=== PATIENT | male | born 1960 | race Caucasian/White ===

== ENCOUNTER 2016-11-24 07:08 | Inpatient (IN) | payer BC ==
[2016-11-20 17:26] LABS: BASOPHILS 0.9 %; BASOPHILS ABSOLUTE 0.06 10/3/uL (0.0-0.16); EOSINOPHILS 1.8 %; EOSINOPHILS ABSOLUTE 0.12 10/3/uL (0.0-0.53); HEMATOCRIT 43.8 % (40.0-51.0); HEMOGLOBIN 14.8 g/dL (13.6-17.8); IMMATURE GRANULOCYTES 0.6 %; IMMATURE GRANULOCYTES ABSOLUTE 0.04 10/3/uL (0.0-0.11); LYMPHOCYTES 25.8 %; LYMPHOCYTES ABSOLUTE 1.73 10/3/uL (0.67-4.30); MEAN CORPUSCULAR HEMOGLOB 30.8 pg (26.0-34.0); MEAN CORPUSCULAR VOLUME 91.1 fL (80-100); MEAN PLATELET VOLUME 9.6 fL (9.2-13.0); MONOCYTES 10.7 %; MONOCYTES ABSOLUTE 0.72 10/3/uL (0.21-1.20); NEUTROPHILS 60.2 %; NEUTROPHILS ABSOLUTE 4.03 10/3/uL (2.02-8.40); PLATELET COUNT 285 10/3/uL (150-400); RBC DISTRIBUTION WIDTH 12.6 % (12.0-16.0); RED CELL COUNT 4.81 10/6/uL (4.7-6.1); WHITE BLOOD CELLS 6.7 10/3/uL (4.5-10.5)
[2016-11-20 17:27] LABS: MANUAL DIFF NO %; MEAN CORPUS HGB CONC 33.8 g/dL (32.0-36.0)
[2016-11-20 17:44] LABS: A/G RATIO 1.3 (0.7-1.9); ALKALINE PHOSPHATASE 70 U/L (45-117); BUN (BLOOD UREA NITROGEN) 25 MG/DL (6-23); CALCIUM, SERUM 9.5 MG/DL (8.5-10.4); CHLORIDE, SERUM 107 MMOL/L (96-112); CO2 (CARBON DIOXIDE) 29 MMOL/L (24-34); CREATININE 1.27 MG/DL (0.70-1.30); GFR AFRICAN AMERICAN 74 ML/MIN (>=60); GFR NON AFRICAN AMERICAN 64 ML/MIN (>=60); GLOBULIN 3.2 G/DL (2.5-4.1); GLUCOSE, SERUM 84 MG/DL (60-99); POTASSIUM, SERUM 4.3 MMOL/L (3.5-5.3); SGOT(AST) 25 U/L (5-40); SGPT(ALT) 37 U/L (5-65); SODIUM, SERUM 143 MMOL/L (135-148); TOTAL BILIRUBIN 0.6 MG/DL (0-1.2); TOTAL PROTEIN 7.2 G/DL (6.0-8.5)
[2016-11-20 17:47] LABS: INTERNATIONAL NORMAL RATI 1.1 UNITS (-); PROTIME (NOT ORD) 14.2 SEC (12.0-14.5)
[2016-11-20 18:14] LABS: ASCORBIC ACID (UR NOT ORDER) 20 (NEG); BILIRUBIN, URINE NEGATIVE (NEG); KETONE, URINE NEGATIVE (NEG); LEUKOCYTE ESTERASE(NOT OR NEG (NEG); WBC (NOT ORDERED) (RFLEX) < 1 (0-5)
--- NOTE | ~2016-11-24 | CN ---
Consultation Report [place] [id number] [facility] [place]. [address] NAME: CHAPO DELUCA : 64 STATUS : ADM IN PAT#: [id number] AGE: 56 ADM/REG DATE : 11/24/16 MR#: [id number] REPORT SERV DATE: 11/24/16 DICTATED BY: EMILE CANO DATE: 11/24/16 REPORT STATUS : Draft TRANSCRIBED BY: MODL DATE: 11/24/16 CONSULTATION DATE OF CONSULTATION: 11/24/2016 REASON FOR CONSULTATION: Mr. Chapo Deluca is a 56-year-old male, who is status post minimally invasive maze procedure for a persistent atrial fibrillation. CVD PHYSICIAN: Chris King M.D. CREDIT RISK ANALYTICS MANAGER: Paco Alejandro M.D. SURGEON: Mukund De Oliveira M.D.. HISTORY OF PRESENT ILLNESS: Mr. Chapo Deluca has a long history of atrial fibrillation dating back to 2016 initially mentioned at [facility]. He has undergone cardioversion, but has reverted back to atrial fibrillation. He was then seen back and it was decided proceed with surgical Berman-Maze IV procedure. Cardiac catheterization revealed no evidence of coronary artery disease. REVIEW OF SYSTEMS: Not obtainable. Patient is intubated and sedated. PAST MEDICAL HISTORY: 1. Borderline left ventricular function with elevated LVEDP on previous catheterization. 2. Persistent atrial fibrillation, now status post maze procedure in a paced rhythm. SOCIAL HISTORY: He does not drink or smoke. His is in attendance. FAMILY HISTORY: Noncontributory. PHYSICAL EXAMINATION: GENERAL: He is currently sedated and intubated. LUNGS: Bilateral breath sounds are heard. HEART: Paced rhythm is noted. EXTREMITIES: Warm. LABORATORY EVALUATION: Telemetry shows paced rhythm. ASSESSMENT: At this time, we will follow with you. We will follow underlying rhythm as this progresses. Consultation Report [place] [id number] [facility]. [address] NAME: CHAPO DELUCA : 64 STATUS : ADM IN PAT#: [id number] AGE: 56 ADM/REG DATE : 11/24/16 MR#: [id number] REPORT SERV DATE: 11/24/16 DICTATED BY: EMILE CANO DATE: 11/24/16 REPORT STATUS : Draft TRANSCRIBED BY: MODL DATE: 11/24/16 GG/MODL Emile Cano M.D. / [id number] CC: Mina Matamoros M.D.
--- NOTE | ~2016-11-24 | OP ---
Record Of [facility] [address] [place]. [address] NAME: CHAPO FELTON : 64 STATUS : ADM IN PAT#: [id number] AGE: 56 ADM/REG DATE : 11/24/16 MR#: [id number] REPORT SERV DATE: 11/25/16 DICTATED BY: EMANUEL DE OLIVEIRA DATE: 11/25/16 REPORT STATUS : Draft TRANSCRIBED BY: MODL DATE: 11/25/16 DATE OF PROCEDURE: 11/24/2016 PREOPERATIVE DIAGNOSES: 1. Persistent chronic atrial fibrillation. 2. Hypertension. 3. Obesity. POSTOPERATIVE DIAGNOSES: 1. Persistent chronic atrial fibrillation. 2. Hypertension. 3. Obesity. PROCEDURE PERFORMED: 1. Minimally invasive Berman-Maze IV procedure on cardiopulmonary bypass using radiofrequency ablation and cryoablation. 2. Mini right thoracotomy incision. 3. Right groin cannulation for cardiopulmonary bypass, open. 4. Open repair of right femoral arteriotomy site. 5. Transesophageal echocardiography. 6. Atra clip ligation of left atrial appendage. CLAIM INVESTIGATOR: Saul Kapoor. ANESTHESIA: General with Dr. Salmeron. GRAIN OILSEED OR PASTURE FARM WORKER: Chris King MD EP GRAIN OILSEED OR PASTURE FARM WORKER: Enoch Alejandro MD. 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 He has had previous cardioversion that was unsuccessful. He was referred by Dr. King to Dr. Alejandro for atrial fibrillation treatment, and because of this chronicity, we were asked to see the patient for evaluation for possible Berman-Maze IV procedure. Ventricular function has been preserved. The patient notes chronic fatigue and some dyspnea with exertion. There is no history of syncope or TIA-like symptoms. He denies anginal-type chest pain. Echocardiography demonstrated no surgically significant valvular pathology and an ejection fraction of 50%. We saw the patient in our office and discussed a possible Berman-Maze IV procedure with him and his significant other. The patient underwent a cardiac catheterization on 10/16 of this year. 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 Possible Berman-Maze IV procedure was considered and discussed with the patient who wished to proceed. Record Of [facility] [address] [place]. [address] NAME: CHAPO FELTON : 64 STATUS : ADM IN PAT#: [id number] AGE: 56 ADM/REG DATE : 11/24/16 MR#: [id number] REPORT SERV DATE: 11/25/16 DICTATED BY: EMANUEL DE OLIVEIRA DATE: 11/25/16 REPORT STATUS : Draft TRANSCRIBED BY: DARIN DATE: 11/25/16 FINDINGS AT OPERATION: 1. Cross-clamp time 58 minutes. Total pump time 138 minutes. 2. Berman-Maze IV procedure was performed on cardiopulmonary bypass using the AtriCure radiofrequency ablation system and cryoablation systems. See the Berman-Maze IV lesion set checklist for the specific lesions created. 3. We used a 45 mm Atra clip placed at the base left atrial appendage with echocardiography confirmation of ablation. 4. We performed open repair of the right femoral arteriotomy site after decannulation. 5. Right groin cannulation was performed for femoral artery and vein cannulation for bypass. 6. PENG at the end of the procedure demonstrated good ventricular function with no significant valvular pathology. There was no residual lumen seen on the left atrial appendage after clip application. No significant MR. PATHOLOGIC SPECIMENS: None. DESCRIPTION OF PROCEDURE: The patient was brought to the operating suite, where general anesthesia was induced and airway secured with a dual lumen endotracheal tube. Lines secured by Anesthesia. Keating catheter was placed. PENG probe was placed by Dr. Salmeron and examination carried out as discussed above. Aortic insufficiency was mild. There was no clot noted in the left atrial appendage and there was no significant mitral insufficiency. A mini right anterolateral thoracotomy was made for approximately 6-8 cm at the inframammary crease extending across the anterior axillary line. This was carried through subcutaneous tissue and chest wall musculature. The 4th intercostal space was identified and this was opened using cautery. A large Protractor soft tissue retractor was placed through the incision. The lung was deflated by Anesthesia and there were no adhesions noted. A small retractor was placed. We then noted that the diaphragm was high on this side and tacking sutures were placed in the diaphragm and retraction performed to allow us good access to the pericardial space. There was large amount of pericardial fat noted, and these areas of fat were suspended using tacking sutures of pledgeted Ti-Cron brought through the anterior chest wall. The right groin was then approached for cannulation. An oblique incision was made directly over the femoral artery and vein above the inguinal crease. This carried through subcutaneous tissue. The femoral artery and vein were identified and these were dissected. Pursestring sutures of 6-0 Prolene were placed in both structures. Lines were passed on the field for cardiopulmonary bypass and cleared of air. Heparin was administered by Anesthesia. Venous cannulation was performed using modified Seldinger technique, and this dual stage percutaneous venous cannula was advanced into the proximal SVC under PENG guidance. The right femoral artery cannulation was performed using a modified Seldinger technique, and a 21-Citizen Of [place] arterial cannula placed in the right femoral artery and secured. Both lines were connected to the cardiopulmonary bypass pump tubing and cleared of air. When all was in readiness, the patient was placed on cardiopulmonary bypass. Then opening Record Of [facility] [address] [place]. [address] NAME: CHAPO FELTON : 64 STATUS : ADM IN PAT#: [id number] AGE: 56 ADM/REG DATE : 11/24/16 MR#: [id number] REPORT SERV DATE: 11/25/16 DICTATED BY: EMANUEL DE OLIVEIRA DATE: 11/25/16 REPORT STATUS : Draft TRANSCRIBED BY: DARIN DATE: 11/25/16 in the pericardium was made longitudinally about 2-3 cm anterior to the phrenic nerve and following it from the superior vena cava down to the diaphragm. Tacking sutures were placed on the pericardium both anteriorly and laterally. This allowed us good exposure of the right atrium and superior vena cava. Unfortunately, we did not have good decompression of the right atrium and various maneuvers were considered to try to improve this including manipulation of the venous cannula in the right femoral vein. At the end, I felt that an additional cannula should be placed directly into the right atrium and this planned after the right-sided Maze lesions were completed. We then began the right-sided Maze lesion set. Right atrial appendage lesion was performed along with lateral atrial wall and transverse atrial wall. Superior and inferior vena cava lesions were performed, all with the RFA bipolar clamp. Then to complete the right-sided lesion set, the cryoprobe was advanced through a pursestring suture in the right atrial appendage. This was placed across the tricuspid valve at the 2 o'clock position and this cryo lesion performed. Once this was completed, the pursestring suture was tied. One of the other access sites on the right atrium for performance of the Maze was utilized as a pursestring suture and a 28-Citizen [place] malleable venous cannula advanced into the right atrium and secured. This was utilized for additional decompression of the heart and worked very nicely. Then, we examined and attempted to locate the left atrial appendage through the transverse sinus. The left atrial appendage was identified. A 45 mm Atra clip device was selected, it was placed through the transverse sinus and the left atrial appendage, teased into the clip. The clip was then closed and the heart was allowed to fill and eject with the heart full of the left atrial appendage appeared obliterated on the PENG. The Atra clip was then deployed and the delivery system was brought out through the chest. The interatrial groove of [place] was then dissected and preparations made for the left- sided portion of the lesion set. For this left-sided lesion set, cross-clamping of the aorta was to be carried out. An antegrade cardioplegia long needle was placed in the aortic root and secured with a pursestring suture. The aorta was then crossclamped and initial and only dose of cold crystalloid cardioplegia solution (long term) was delivered through this antegrade needle. Good arrest was obtained. Following this dose of cardioplegia, we continued with the Maze procedure. The left atriotomy was made. Then, using the AtriCure cryoprobe, pulmonary vein isolation was performed along with superior and inferior left atrial lesion set. A lesion going from the left pulmonary vein isolation to the left atrial appendage was performed using the cryoprobe. Then, a coronary sinus lesion was performed on the epicardial surface using the cryoprobe. Finally, going down to the mitral annulus, the cryoprobe was used to perform this lesion. Once the left-sided lesion set was completed. Warming was begun. The left atriotomy was then closed in a two-layer fashion with running pledgeted suture of 4 0 Prolene. An LV vent was placed through the left atriotomy into the left ventricle prior to closure and this was kept in place for de-airing. The patient was then placed in Trendelenburg and the left ventricle and ascending aorta de- aired. Flow was reduced on the pump and the aortic cross-clamp was removed. Record Of Operation [facility] [address] [place]. [address] NAME: CHAPO FELTON : 64 STATUS : ADM IN PAT#: [id number] AGE: 56 ADM/REG DATE : 11/24/16 MR#: [id number] REPORT SERV DATE: 11/25/16 DICTATED BY: EMANUEL DE OLIVEIRA DATE: 11/25/16 REPORT STATUS : Draft TRANSCRIBED BY: DARIN DATE: 11/25/16 The patient resumed a slow sinus rhythm. Ventricular and atrial pacing wires were placed and the heart was paced in an atrial fashion at a rate of 80. Ventilations were begun in both lungs. When the heart demonstrated good contractility, it was allowed to fill and eject. De-airing was monitored with PENG. When de-airing was completed, the LV vent was removed and the sutures were tied. The ascending aortic root vent was likewise removed and this pledgeted mattress suture of Prolene was tied with good hemostasis. The patient was then weaned from cardiopulmonary bypass with minimal inotropic support. The venous cannula was removed from the right femoral vein and this pursestring suture tied and was hemostatic. PENG examination demonstrated good ventricular function. No left atrial appendage was identified on PENG and there was no significant mitral insufficiency. Protamine was then administered by Anesthesia and following a period of hemodynamic stability, the arterial cannula from the right femoral artery was removed. The proximal and distal control of the right femoral artery was obtained using angled DeBakey clamps. The right femoral arteriotomy site was freshened and then closed with interrupted horizontal mattress sutures of 6-0 Prolene. Following closure of the vessel was de-aired by releasing the most distal clamp and then the proximal clamp. There was good pulsatile flow in the femoral vessel after repair. The patient continued do well and chest and groin were irrigated copiously with saline. Then pacing wires were brought out through the chest and secured to the skin. A chest tube was placed through one of the port access sites made earlier during the procedure and this was secured to the skin. Then, the intercostal space was reapproximated with figure-of- eight sutures of #2 Vicryl. The muscular layer closed with #1 Stratafix. The subcutaneous tissue was closed and skin closed in subcuticular fashion. The patient tolerated the procedure well with no complications. Sponge and needle counts were correct. DISPOSITION: The patient was left intubated, sedated, and transported to the intensive care unit in stable condition. JZ/AVIVAL Emanuel De Oliveira M.D. / [id number] CC: Mina Matamoros M.D. William Warren, M.D. Gregory Keith Bruce, M.D.
--- NOTE | ~2016-11-24 | OP ---
Record Of Operation [facility] [address] [place]. [address] NAME: CHAPO FELTON : 64 STATUS : DIS IN PAT#: [id number] AGE: 56 ADM/REG DATE : 11/24/16 MR#: [id number] REPORT SERV DATE: 11/30/16 DICTATED BY: REUBEN GARCIAS DATE: 11/30/16 REPORT STATUS : Draft TRANSCRIBED BY: MODL DATE: 11/30/16 DATE OF PROCEDURE: 11/30/2016 PROCEDURE TYPE: Elective PENG cardioversion. INDICATION: Atrial fibrillation. DESCRIPTION OF PROCEDURE: All questions were answered and informed consent was obtained. Upon successful sedation per anesthesia, the patient was intubated with the transesophageal probe without complication. Salient echocardiographic windows were obtained, with particular attention to the left atrial appendage. Findings are detailed below: Upon clearance of the appendage, the patient was shocked with 200 joules synchronized x1. The patient successfully converted from atrial fibrillation to sinus rhythm at 60 to 70 beats per minute. There were no complications from the procedure. ECHOCARDIOGRAPHIC FINDINGS: 1. Normal left ventricular systolic function with an estimated ejection fraction of 55%. 2. Normal right ventricular size and systolic function. 3. Morphologically normal valves. 4. Color Doppler demonstrates mild mitral and tricuspid regurgitation. 5. Small left atrial appendage with cord noted. No thrombus was seen in the left atrial appendage at the time of the study. Doppler velocities=(60 cm/second) (peak velocity). VR/DARIN Reuben Garcias MD / [id number] CC: Mina Matamoros M.D.
--- NOTE | ~2016-11-24 | HP ---
History And Physical [place] [address] [place]. [address] NAME: CHAPO DELUCA : 64 STATUS : DIS IN PAT#: [id number] AGE: 56 ADM/REG DATE : 11/24/16 MR#: [id number] REPORT SERV DATE: 01/19/17 DICTATED BY: EMANUEL DE OLIVEIRA DATE: 01/19/17 REPORT STATUS : Draft TRANSCRIBED BY: MODRony DATE: 01/19/17 DATE OF ADMISSION: 11/24/2016 CHIEF COMPLAINT: Chronic fatigue and dyspnea on exertion. 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 Enoch Alejandro. Because of his chronic persistent atrial fibrillation, the patient was asked to be seen in the office for a possible Berman IV maze procedure. He did have a heart catheterization in 2013 that revealed an ejection fraction of 50%. The patient states that he does have chronic fatigue and dyspnea on exertion. He also states that he has some nausea in the morning with taking some of his medications. He denies syncopal episodes, anginal-type chest pain or discomfort, orthopnea, or significant edema. He also denies a history of stroke or TIA like symptoms. His most recent echo showed an ejection fraction of 50% with some trivial valve disease and mild systolic dysfunction of the left ventricle. PAST MEDICAL HISTORY: Significant for chronic atrial fibrillation and chronic systolic heart failure. FAMILY HISTORY: Significant for hypertension and cardiac arrhythmias in his father, mother, and sister. SOCIAL HISTORY: The patient states that he was never a smoker. He does consume one glass of wine once monthly. He denies illicit drug use and does use caffeine on occasion. ALLERGIES: HE DENIES A HISTORY OF ALLERGIES. MEDICATION LIST: Includes: 1. Carvedilol 12.5 mg b.i.d. 2. Eliquis 5 mg twice daily. 3. Furosemide 40 mg daily. 4. Potassium chloride 10 mEq once daily. 5. Lisinopril 20 mg once daily. REVIEW OF SYSTEMS: CONSTITUTIONAL: Negative for weight gain, weight loss, or fever. EYES: Negative for visual changes. ENT: Negative for hearing loss. RESPIRATORY: Negative for hemoptysis. He does report snoring and dyspnea on exertion. CARDIOLOGY: Negative for chest pain, diaphoresis, orthopnea, syncope, or paroxysmal nocturnal dyspnea. He does report palpitations. VASCULAR: Negative for claudication or lower extremity edema. GI: Negative for nausea or bleeding and positive for gastrointestinal reflux. : Negative for hematuria and positive for nocturia. ENDOCRINE: Negative for goiter or tremors. History And Physical [address] [address] NAME: CHAPO DELUCA : 64 STATUS : DIS IN PAT#: [id number] AGE: 56 ADM/REG DATE : 11/24/16 MR#: [id number] REPORT SERV DATE: 01/19/17 DICTATED BY: EMANUEL DE OLIVEIRA DATE: 01/19/17 REPORT STATUS : Draft TRANSCRIBED BY: DARIN DATE: 01/19/17 NEURO: Negative for dizziness, memory loss, or seizures. PSYCHIATRIC: Negative for depression or hallucinations. DERMATOLOGY: Negative for rash or skin sores. MUSCULOSKELETAL: Negative for myalgias and positive for joint pain. HEMATOLOGY: Negative for acute anemia or thrombocytopenia. PHYSICAL EXAMINATION: VITAL SIGNS: Include a heart rate of 62, blood pressure of 105/65, the patient is 69 inches and weighs 218 pounds, respiratory rate is 18, and he has a BMI of 32.1. CONSTITUTIONAL: Negative for acute distress. He is well nourished and well developed. EYES: Conjunctivae are clear as well as the sclerae bilaterally. His pupils are equal, round, and reactive to light. NOSE, MOUTH, AND THROAT: He has moist oral mucosa without any evidence of cyanosis or pallor. NECK: Demonstrates no evidence of masses or limited range of motion or jugular vein distention. RESPIRATORY: His breath sounds are clear throughout and nonlabored. CARDIAC: He does have S1 and S2 heart sounds without any evidence of murmurs. He does have an irregular rhythm that is noted. VASCULAR: Negative for carotid bruits. He has normal bilateral pedal pulses. ABDOMEN: Soft and nontender without any evidence of hepatomegaly or splenomegaly. He has active bowel sounds. SKIN: Warm and dry without any evidence of venous stasis ulcers or rashes. MUSCULOSKELETAL: His gait is normal, and he is able to exercise. EXTREMITIES: Without clubbing, cyanosis, or lower extremity edema. NEUROLOGICAL: He is awake, alert, and oriented x3 and has appropriate mood and affect. IMPRESSION: 1. Chronic atrial fibrillation. 2. Unspecified cardiomyopathy. PLAN: The patient had discussion along with his significant other and Dr. De Oliveira for a possible Berman maze IV procedure for chronic persistent atrial fibrillation. I believe this would give him the highest likelihood of success. He does not require open heart surgery or cardiopulmonary bypass. He would be a reasonable candidate for the right mini-thoracotomy surgery and those were discussed with the patient and the family today. They understand the risks associated with the operation that are significant for bleeding, infection, pneumonia, blood transfusion, kidney or liver damage, arrhythmia, need for pacemaker, heart attack, stroke, mediastinitis, DVT with pulmonary emboli, and among others. The patient verbalizes understanding of these risks and is willing to proceed forward with surgery. He also understands the success rate of a Berman IV maze procedure for chronic atrial fibrillation to be between 70% and 80%. At this time, the plan will be for the patient to have a cardiac catheterization, and he will be scheduled for a right thoracotomy with Berman IV maze procedure and a PENG. This procedure has been scheduled for 11/24/2016. DICTATED BY: Ximena Gomez NP History And Physical [address] [address] NAME: CHAPO DELUCA : 64 STATUS : DIS IN PAT#: [id number] AGE: 56 ADM/REG DATE : 11/24/16 MR#: [id number] REPORT SERV DATE: 01/19/17 DICTATED BY: EMANUEL DE OLIVEIRA DATE: 01/19/17 REPORT STATUS : Draft TRANSCRIBED BY: DARIN DATE: 01/19/17 KEL/DARIN Emanuel De Oliveira M.D. / [id number] CC: Mina Matamoros M.D.
[~2016-11-24 07:08] MED LIST: COREG12 PO; ELIQUIS 5 MG TAB5 MG PO; KLOR-CON M1010 MEQ PO; L40 PO; LAN25 PO; ZESTRIL20 MG PO
[2016-11-24 15:27] LABS: BE (BASE EXCESS) -5.9 MEQ/L (0 +/- 2.5); CARBOXYHEMOGLOBIN 0.3 % (0-3); HCO3 (ACTUAL BICARBONATE) 19.4 MEQ/L (23-27); HEMOBLOGIN CONTENT 14.1 G/DL (14-18); INSTRUMENT SERIAL # 11843; METHEMOGLOBIN 0.6 % (0-3); MODE SIMV; O2 CONTENT 20.2 VOL% (18-24); OPERATOR ID 18642; PCO2 (CO2 TENSION) 37 MMHG (35-45); PO2 (O2 TENSION) 296 MMHG (79-93); SAMPLE Arterial; TIDAL VOLUME 700 ML; pH 7.33 (7.37-7.43)
[2016-11-24 15:36] LABS: HEMOGLOBIN 13.2 g/dL (13.6-17.8)
[2016-11-24 15:39] LABS: HEMATOCRIT 38.7 % (40.0-51.0); PLATELET COUNT 153 10/3/uL (150-400)
[2016-11-24 15:45] LABS: CHLORIDE, SERUM 110 MMOL/L (96-112); CREATININE 1.09 MG/DL (0.70-1.30); GFR AFRICAN AMERICAN 89 ML/MIN (>=60); GFR NON AFRICAN AMERICAN 77 ML/MIN (>=60); INTERNATIONAL NORMAL RATI 1.6 UNITS (-); PARTIAL THROMBO TIME 30.2 SEC (22.5-37.2); POTASSIUM, SERUM 4.6 MMOL/L (3.5-5.3); SODIUM, SERUM 137 MMOL/L (135-148)
[2016-11-24 15:48] LABS: BUN (BLOOD UREA NITROGEN) 17 MG/DL (6-23); CALCIUM, SERUM 8.2 MG/DL (8.5-10.4); CO2 (CARBON DIOXIDE) 22 MMOL/L (24-34); GLUCOSE, SERUM 140 MG/DL (60-99); PROTIME (NOT ORD) 18.5 SEC (12.0-14.5)
[2016-11-24 17:29] LABS: BASOPHILS 0.1 %; BASOPHILS ABSOLUTE 0.02 10/3/uL (0.0-0.16); EOSINOPHILS 0.1 %; EOSINOPHILS ABSOLUTE 0.02 10/3/uL (0.0-0.53); IMMATURE GRANULOCYTES 0.5 %; IMMATURE GRANULOCYTES ABSOLUTE 0.07 10/3/uL (0.0-0.11); LYMPHOCYTES 5.2 %; MANUAL DIFF NO %; MEAN CORPUS HGB CONC 34.2 g/dL (32.0-36.0); MEAN CORPUSCULAR HEMOGLOB 31.4 pg (26.0-34.0); MONOCYTES 2.2 %; NEUTROPHILS 91.9 %; NEUTROPHILS ABSOLUTE 12.25 10/3/uL (2.02-8.40); RBC DISTRIBUTION WIDTH 12.8 % (12.0-16.0); RED CELL COUNT 4.23 10/6/uL (4.7-6.1); WHITE BLOOD CELLS 13.4 10/3/uL (4.5-10.5)
[2016-11-24 21:59] LABS: HEMATOCRIT 39.4 % (40.0-51.0); HEMOGLOBIN 13.2 g/dL (13.6-17.8)
[2016-11-24 22:04] LABS: POTASSIUM, SERUM 4.9 MMOL/L (3.5-5.3)
[2016-11-25 03:22] LABS: BASOPHILS 0 %; EOSINOPHILS 0 %; HEMATOCRIT 37.6 % (40.0-51.0); HEMOGLOBIN 13.1 g/dL (13.6-17.8); IMMATURE GRANULOCYTES 0.3 %; IMMATURE GRANULOCYTES ABSOLUTE 0.03 10/3/uL (0.0-0.11); LYMPHOCYTES 5.9 %; LYMPHOCYTES ABSOLUTE 0.67 10/3/uL (0.67-4.30); MEAN CORPUS HGB CONC 34.8 g/dL (32.0-36.0); MEAN CORPUSCULAR HEMOGLOB 31.9 pg (26.0-34.0); MEAN CORPUSCULAR VOLUME 91.5 fL (80-100); MEAN PLATELET VOLUME 9.5 fL (9.2-13.0); MONOCYTES 7.8 %; MONOCYTES ABSOLUTE 0.88 10/3/uL (0.21-1.20); NEUTROPHILS ABSOLUTE 9.72 10/3/uL (2.02-8.40); PLATELET COUNT 187 10/3/uL (150-400); RBC DISTRIBUTION WIDTH 12.6 % (12.0-16.0); RED CELL COUNT 4.11 10/6/uL (4.7-6.1); WHITE BLOOD CELLS 11.3 10/3/uL (4.5-10.5)
[2016-11-25 03:23] LABS: MANUAL DIFF NO %
[2016-11-25 03:35] LABS: CALCIUM, SERUM 8.8 MG/DL (8.5-10.4); CHLORIDE, SERUM 109 MMOL/L (96-112); CO2 (CARBON DIOXIDE) 21 MMOL/L (24-34); CREATININE 0.95 MG/DL (0.70-1.30); GFR AFRICAN AMERICAN 105 ML/MIN (>=60); GFR NON AFRICAN AMERICAN 90 ML/MIN (>=60); GLUCOSE, SERUM 101 MG/DL (60-99); POTASSIUM, SERUM 4.7 MMOL/L (3.5-5.3); SODIUM, SERUM 138 MMOL/L (135-148)
[2016-11-25 03:37] LABS: BUN (BLOOD UREA NITROGEN) 23 MG/DL (6-23)
[2016-11-25 18:42] LABS: HEMATOCRIT 39.4 % (40.0-51.0); HEMOGLOBIN 13.2 g/dL (13.6-17.8)
[2016-11-26 06:17] LABS: BASOPHILS 0.1 %; BASOPHILS ABSOLUTE 0.01 10/3/uL (0.0-0.16); EOSINOPHILS 0 %; HEMATOCRIT 35.8 % (40.0-51.0); HEMOGLOBIN 12.2 g/dL (13.6-17.8); IMMATURE GRANULOCYTES 0.5 %; IMMATURE GRANULOCYTES ABSOLUTE 0.07 10/3/uL (0.0-0.11); LYMPHOCYTES 8.4 %; LYMPHOCYTES ABSOLUTE 1.13 10/3/uL (0.67-4.30); MEAN CORPUS HGB CONC 34.1 g/dL (32.0-36.0); MEAN CORPUSCULAR HEMOGLOB 31.3 pg (26.0-34.0); MEAN CORPUSCULAR VOLUME 91.8 fL (80-100); MEAN PLATELET VOLUME 9.5 fL (9.2-13.0); MONOCYTES 11.6 %; MONOCYTES ABSOLUTE 1.56 10/3/uL (0.21-1.20); NEUTROPHILS 79.4 %; PLATELET COUNT 170 10/3/uL (150-400); WHITE BLOOD CELLS 13.5 10/3/uL (4.5-10.5)
[2016-11-26 06:18] LABS: MANUAL DIFF NO %
[2016-11-26 06:25] LABS: BUN (BLOOD UREA NITROGEN) 21 MG/DL (6-23); CALCIUM, SERUM 8.4 MG/DL (8.5-10.4); CHLORIDE, SERUM 102 MMOL/L (96-112); CO2 (CARBON DIOXIDE) 23 MMOL/L (24-34); CREATININE 1.04 MG/DL (0.70-1.30); GFR AFRICAN AMERICAN 94 ML/MIN (>=60); GFR NON AFRICAN AMERICAN 81 ML/MIN (>=60); POTASSIUM, SERUM 4.7 MMOL/L (3.5-5.3); SODIUM, SERUM 132 MMOL/L (135-148)
[2016-11-26 06:26] LABS: GLUCOSE, SERUM 130 MG/DL (60-99)
[2016-11-27 06:18] LABS: BASOPHILS 0.2 %; BASOPHILS ABSOLUTE 0.02 10/3/uL (0.0-0.16); EOSINOPHILS 0.4 %; EOSINOPHILS ABSOLUTE 0.04 10/3/uL (0.0-0.53); HEMATOCRIT 35.4 % (40.0-51.0); HEMOGLOBIN 11.8 g/dL (13.6-17.8); IMMATURE GRANULOCYTES 0.8 %; IMMATURE GRANULOCYTES ABSOLUTE 0.09 10/3/uL (0.0-0.11); LYMPHOCYTES ABSOLUTE 1.09 10/3/uL (0.67-4.30); MANUAL DIFF NO %; MEAN CORPUS HGB CONC 33.3 g/dL (32.0-36.0); MEAN CORPUSCULAR HEMOGLOB 30.6 pg (26.0-34.0); MEAN CORPUSCULAR VOLUME 91.9 fL (80-100); MEAN PLATELET VOLUME 9.8 fL (9.2-13.0); MONOCYTES 13.8 %; MONOCYTES ABSOLUTE 1.51 10/3/uL (0.21-1.20); NEUTROPHILS 74.8 %; NEUTROPHILS ABSOLUTE 8.19 10/3/uL (2.02-8.40); PLATELET COUNT 159 10/3/uL (150-400); RBC DISTRIBUTION WIDTH 12.9 % (12.0-16.0); RED CELL COUNT 3.85 10/6/uL (4.7-6.1); WHITE BLOOD CELLS 10.9 10/3/uL (4.5-10.5)
[2016-11-27 06:20] LABS: INTERNATIONAL NORMAL RATI 1.2 UNITS (-); PROTIME (NOT ORD) 15.2 SEC (12.0-14.5)
[2016-11-27 06:26] LABS: CALCIUM, SERUM 8.3 MG/DL (8.5-10.4); CHLORIDE, SERUM 102 MMOL/L (96-112); CO2 (CARBON DIOXIDE) 26 MMOL/L (24-34); CREATININE 0.92 MG/DL (0.70-1.30); GFR AFRICAN AMERICAN 109 ML/MIN (>=60); GFR NON AFRICAN AMERICAN 94 ML/MIN (>=60); POTASSIUM, SERUM 4.4 MMOL/L (3.5-5.3); SODIUM, SERUM 134 MMOL/L (135-148)
[2016-11-27 06:27] LABS: BUN (BLOOD UREA NITROGEN) 15 MG/DL (6-23); GLUCOSE, SERUM 99 MG/DL (60-99)
[2016-11-28 04:49] LABS: HEMATOCRIT 33.4 % (40.0-51.0); HEMOGLOBIN 11.3 g/dL (13.6-17.8); MEAN CORPUS HGB CONC 33.8 g/dL (32.0-36.0); MEAN CORPUSCULAR HEMOGLOB 31.4 pg (26.0-34.0); MEAN CORPUSCULAR VOLUME 92.8 fL (80-100); MEAN PLATELET VOLUME 9.7 fL (9.2-13.0); PLATELET COUNT 184 10/3/uL (150-400); RBC DISTRIBUTION WIDTH 12.9 % (12.0-16.0); WHITE BLOOD CELLS 9.1 10/3/uL (4.5-10.5)
[2016-11-28 04:52] LABS: INTERNATIONAL NORMAL RATI 1.2 UNITS (-)
[2016-11-28 05:01] LABS: BUN (BLOOD UREA NITROGEN) 16 MG/DL (6-23); CALCIUM, SERUM 8.3 MG/DL (8.5-10.4); CHLORIDE, SERUM 103 MMOL/L (96-112); CO2 (CARBON DIOXIDE) 27 MMOL/L (24-34); CREATININE 0.88 MG/DL (0.70-1.30); GFR AFRICAN AMERICAN 113 ML/MIN (>=60); GFR NON AFRICAN AMERICAN 97 ML/MIN (>=60); GLUCOSE, SERUM 83 MG/DL (60-99); POTASSIUM, SERUM 4.5 MMOL/L (3.5-5.3); SODIUM, SERUM 136 MMOL/L (135-148)
[2016-11-28 05:06] LABS: MANUAL DIFF YES %
[2016-11-28 05:23] LABS: BAND NEUTROPHILS 6 %; EOSINOPHILS 1 %; EOSINOPHILS ABSOLUTE (CALC) 0.09 10/3/uL (0.0-0.53); LYMPHOCYTES 14 %; LYMPHOCYTES ABSOLUTE (CALC) 1.27 10/3/uL (0.67-4.30); MONOCYTES 7 %; MONOCYTES ABSOLUTE (CALC) 0.64 10/3/uL (0.21-1.20); PLATELET ESTIMATE ADQ (ADEQUATE); RBC MORPHOLOGY NORM (NORMAL); SEGMENTED NEUTROPHIL (0) 72 %; TOTAL NUCLEATED CELLS 100
[2016-11-29 05:19] LABS: BASOPHILS 0.2 %; BASOPHILS ABSOLUTE 0.02 10/3/uL (0.0-0.16); EOSINOPHILS 3.6 %; HEMATOCRIT 33.4 % (40.0-51.0); IMMATURE GRANULOCYTES 1.3 %; IMMATURE GRANULOCYTES ABSOLUTE 0.11 10/3/uL (0.0-0.11); LYMPHOCYTES 17.1 %; LYMPHOCYTES ABSOLUTE 1.42 10/3/uL (0.67-4.30); MEAN CORPUS HGB CONC 32.9 g/dL (32.0-36.0); MEAN CORPUSCULAR HEMOGLOB 30.6 pg (26.0-34.0); MEAN CORPUSCULAR VOLUME 92.8 fL (80-100); MEAN PLATELET VOLUME 9.4 fL (9.2-13.0); MONOCYTES 12.7 %; MONOCYTES ABSOLUTE 1.05 10/3/uL (0.21-1.20); NEUTROPHILS 65.1 %; NEUTROPHILS ABSOLUTE 5.39 10/3/uL (2.02-8.40); PLATELET COUNT 233 10/3/uL (150-400); RBC DISTRIBUTION WIDTH 12.7 % (12.0-16.0); WHITE BLOOD CELLS 8.3 10/3/uL (4.5-10.5)
[2016-11-29 05:22] LABS: MANUAL DIFF NO %
[2016-11-29 05:27] LABS: INTERNATIONAL NORMAL RATI 1.2 UNITS (-); PROTIME (NOT ORD) 15.1 SEC (12.0-14.5)
[2016-11-29 05:35] LABS: BUN (BLOOD UREA NITROGEN) 16 MG/DL (6-23); CALCIUM, SERUM 8.8 MG/DL (8.5-10.4); CHLORIDE, SERUM 102 MMOL/L (96-112); CO2 (CARBON DIOXIDE) 30 MMOL/L (24-34); CREATININE 1.01 MG/DL (0.70-1.30); GFR AFRICAN AMERICAN 97 ML/MIN (>=60); GFR NON AFRICAN AMERICAN 84 ML/MIN (>=60); GLUCOSE, SERUM 87 MG/DL (60-99); POTASSIUM, SERUM 4.5 MMOL/L (3.5-5.3); SODIUM, SERUM 136 MMOL/L (135-148)
[2016-11-30 04:38] LABS: BASOPHILS 0.4 %; BASOPHILS ABSOLUTE 0.03 10/3/uL (0.0-0.16); EOSINOPHILS 3.4 %; EOSINOPHILS ABSOLUTE 0.29 10/3/uL (0.0-0.53); HEMATOCRIT 33.2 % (40.0-51.0); HEMOGLOBIN 11.5 g/dL (13.6-17.8); IMMATURE GRANULOCYTES 2.3 %; LYMPHOCYTES 18.1 %; LYMPHOCYTES ABSOLUTE 1.55 10/3/uL (0.67-4.30); MEAN CORPUSCULAR HEMOGLOB 31.6 pg (26.0-34.0); MEAN CORPUSCULAR VOLUME 91.2 fL (80-100); MEAN PLATELET VOLUME 9.3 fL (9.2-13.0); MONOCYTES 16.3 %; MONOCYTES ABSOLUTE 1.39 10/3/uL (0.21-1.20); NEUTROPHILS 59.5 %; NEUTROPHILS ABSOLUTE 5.09 10/3/uL (2.02-8.40); PLATELET COUNT 244 10/3/uL (150-400); RBC DISTRIBUTION WIDTH 12.8 % (12.0-16.0); RED CELL COUNT 3.64 10/6/uL (4.7-6.1); WHITE BLOOD CELLS 8.6 10/3/uL (4.5-10.5)
[2016-11-30 04:41] LABS: INTERNATIONAL NORMAL RATI 1.3 UNITS (-); PROTIME (NOT ORD) 15.7 SEC (12.0-14.5)
[2016-11-30 04:42] LABS: MANUAL DIFF NO %; MEAN CORPUS HGB CONC 34.6 g/dL (32.0-36.0)
[2016-11-30 04:44] LABS: BUN (BLOOD UREA NITROGEN) 15 MG/DL (6-23); CALCIUM, SERUM 8.7 MG/DL (8.5-10.4); CHLORIDE, SERUM 103 MMOL/L (96-112); CO2 (CARBON DIOXIDE) 27 MMOL/L (24-34); CREATININE 0.91 MG/DL (0.70-1.30); GFR AFRICAN AMERICAN 110 ML/MIN (>=60); GFR NON AFRICAN AMERICAN 95 ML/MIN (>=60); GLUCOSE, SERUM 87 MG/DL (60-99); POTASSIUM, SERUM 4.6 MMOL/L (3.5-5.3); SODIUM, SERUM 136 MMOL/L (135-148)
[2016-11-30] MEDS ORDERED: NORCO1 TA1 PO (11:42)
[2016-11-30] MEDS ORDERED: CORDARONE PO (11:43)
[2016-11-30] MEDS ORDERED: LOVENOX1C SC (11:43)
[2016-11-30] MEDS ORDERED: C1 PO (11:44)
== END 2016-11-30 12:50 | disposition home or self-care (01) | DRG 229 ==
LOC: SDC/OF 07:08 → CVICU 11:35 → 5NO 11-26 16:30
PROVIDERS: Internal Medicine Cardiovascular Disease; Nurse Practitioner Adult Health; Thoracic Surgery (Cardiothoracic Vascular Surgery)
PROC: B246ZZ4 Ultrasonography of Right and Left Heart, Transesophageal (ICD-10-PCS; 2016-11-24)
PROC: 02L70CK Occlusion of Left Atrial Appendage with Extraluminal Device, Open Approach (ICD-10-PCS; 2016-11-24)
PROC: 5A1945Z Respiratory Ventilation, 24-96 Consecutive Hours (ICD-10-PCS; 2016-11-24)
PROC: 0BH17EZ Insertion of Endotracheal Airway into Trachea, Via Natural or Artificial Opening (ICD-10-PCS; 2016-11-24)
PROC: 02580ZZ Destruction of Conduction Mechanism, Open Approach (ICD-10-PCS; principal; 2016-11-24 09:15)
PROC: 04QK0ZZ Repair Right Femoral Artery, Open Approach (ICD-10-PCS; 2016-11-24 09:15)
PROC: 5A1221Z Performance of Cardiac Output, Continuous (ICD-10-PCS; 2016-11-24 09:15)
PROC: B246ZZ4 Ultrasonography of Right and Left Heart, Transesophageal (ICD-10-PCS; 2016-11-30)
PROC: 5A2204Z Restoration of Cardiac Rhythm, Single (ICD-10-PCS; 2016-11-30)
DX: I48.1 Persistent atrial fibrillation (principal); I11.0 Hypertensive heart disease with heart failure; I50.22 Chronic systolic (congestive) heart failure; J93.9 Pneumothorax, unspecified; E66.9 Obesity, unspecified; I48.4 Atypical atrial flutter; Z68.31 Body mass index [BMI] 31.0-31.9, adult
CPT/HCPCS: 36415; 71010; 71020; 80048; 80053; 81001; 82330; 82803; 82805; 82947; 82962; 83036; 83550; 83735; 84132; 84295; 85014; 85018; 85025; 85347; 85610; 85730; 86850; 86900; 86901; 86920; 87641; 92960; 93005; 93312; 93320; 93325; 94002; 94640; 94660; 94770; A9270-GY; C1751; C1769; C2618; J0282; J0690; J1644; J1885; J2150; J2250; J2370; J2720; J2795; J2930; J3010; J3475; P9045

== ENCOUNTER 2016-12-02 16:39 | Inpatient (IN) | payer BC ==
--- NOTE | ~2016-12-02 | HP ---
History And Physical [id number] [place]. [address] NAME: CHAPO DELUCA : 64 STATUS : ADM Vitor PAT#: [id number] AGE: 56 ADM/REG DATE : 12/02/16 MR#: [id number] REPORT SERV DATE: 12/03/16 DICTATED BY: CHRIS TORREZ DATE: 12/02/16 REPORT STATUS : Draft TRANSCRIBED BY: MODL DATE: 12/02/16 DATE OF ADMISSION: 12/02/2016 CHIEF COMPLAINT: Atrial fibrillation. HISTORY OF PRESENT ILLNESS: Mr. Deluca is a 56-year-old man with a several year history of atrial fibrillation. He underwent open chest maze procedure by Dr. De Oliveira in the last few weeks. He had postoperative atrial fibrillation with mildly rapid rate. He was admitted to [facility] given IV and p.o. amiodarone and then underwent a cardioversion. He has subsequently reverted back to atrial fibrillation and presents in the emergency room with weakness and palpitations. He had symptoms of presyncope but no actual syncope. PAST MEDICAL HISTORY: 1. Persistent atrial fibrillation. 2. Hypertension. ALLERGIES: HYDRALAZINE CAUSES A RASH. MEDICATIONS: Amiodarone 200 mg twice a day, vitamin C, B complex vitamin, Coreg 12.5 mg twice a day, Lovenox, Coumadin, magnesium oxide, and hydrocodone. SOCIAL HISTORY: He does not smoke and rarely drinks alcohol. FAMILY HISTORY: There is no family history of early coronary artery disease. REVIEW OF SYSTEMS: A complete review of systems was obtained, which is negative in detail except as mentioned above in the HPI. PHYSICAL EXAMINATION: VITAL SIGNS: Blood pressure 120/80, heart rate of 115 and irregular, and respiratory rate of 14. GENERAL: Comfortable in no acute distress. HEENT: Anicteric. No xanthelasma. Lips without cyanosis. NECK: No JVD. Carotids 2+ and symmetric. No carotid bruits. LUNGS: CTA bilaterally. No wheezes or rhonchi. No accessory muscle use. COR: RRR. Normally placed PMI. Normal S1 and S2. No murmurs, rubs or gallops. ABD: Soft, nontender, nondistended. Normal bowel sounds. No abdominal bruits. EXT: There is mild bilateral lower extremity edema. SKIN: Warm. Dry. No venous stasis changes. MS: No kyphosis. NEURO/PSYCH: Oriented x3. No anxiety or depression. LABORATORY STUDIES: White count of 9.4, hemoglobin of 10.4, creatinine of 1.0, potassium of 4.0, and troponin of 0.58. INR of 1.6. Magnesium 2.3. History And Physical [address] [address] NAME: CHAPO DELUCA : 64 STATUS : ADM Vitor PAT#: [id number] AGE: 56 ADM/REG DATE : 12/02/16 MR#: [id number] REPORT SERV DATE: 12/03/16 DICTATED BY: CHRIS TORREZ DATE: 12/02/16 REPORT STATUS : Draft TRANSCRIBED BY: DARIN DATE: 12/02/16 EKG: A 12-lead EKG shows atrial fibrillation at a rate of 124 beats per minute. Occasional aberrantly conducted beats or premature ventricular beats are noted. Nonspecific T-wave abnormalities noted. IMPRESSION: This is a 56-year-old man with persistent atrial fibrillation and recurrent atrial fibrillation postop from surgical maze procedure. I have recommended increasing his amiodarone dose orally. He is on IV Cardizem for short-term rate control. I have recommended an echocardiogram to exclude a pericardial effusion. We will plan short-term for rate control with additional time for amiodarone to load up and consider a cardioversion down the road. FARTUN/DARIN Chris Torrez M.D. / [id number] CC: Mina Johnson M.D.
--- NOTE | ~2016-12-02 | OP ---
Record Of Operation [facility] [address] [place]. [address] NAME: CHAPO FELTON : 64 STATUS : ADM Vitor PAT#: [id number] AGE: 56 ADM/REG DATE : 12/02/16 MR#: [id number] REPORT SERV DATE: 12/04/16 DICTATED BY: EMANUEL DE OLIVEIRA DATE: 12/04/16 REPORT STATUS : Draft TRANSCRIBED BY: MODL DATE: 12/04/16 DATE OF PROCEDURE: 12/04/2016 PREOPERATIVE DIAGNOSES: 1. Pericardial effusion status post Berman-Maze 4 procedure, through a left mini thoracotomy. 2. Chronic atrial fibrillation. 3. Chronic systolic heart failure. POSTOPERATIVE DIAGNOSES: 1. Pericardial effusion status post Berman-Maze 4 procedure, through a left mini thoracotomy. 2. Chronic atrial fibrillation. 3. Chronic systolic heart failure. PROCEDURE PERFORMED: 1. Subxiphoid pericardial window drainage of pericardial effusion. 2. Transesophageal echocardiography. [employer] TRIMMER: Apurva Augustine. INDICATIONS: This is a 56-year-old gentleman who has chronic atrial fibrillation. He was referred for a Berman-Maze 4 procedure which was performed several weeks ago. The patient was discharged home in normal sinus rhythm. He presented back with increasing shortness of breath and chest discomfort. He was in atrial fibrillation and also complained of weakness. After admission, he underwent an echocardiogram which showed a large pericardial effusion. We were asked to see the patient for possible drainage of the pericardial effusion. We discussed this with the patient and his significant other and after discussing the operation, its indications and risks, they wished to proceed. FINDINGS AT OPERATION: 1. There was a 700 mL of old bloody pericardial effusion around the heart and this was drained completely. It measured 770 mL total. Some of this was sent for cultures. 2. Echocardiography showed good ventricular function. The left atrial appendage is completely obliterated, and there was mild mitral and tricuspid valve insufficiency. 3. The patient reverted to normal sinus rhythm after drainage of the procedure without cardioversion. PATHOLOGIC SPECIMEN: Pericardial effusion. DESCRIPTION OF PROCEDURE: The patient was brought to the operating suite where general anesthesia was induced. Airway was secured with an endotracheal tube. Lines secured by Anesthesia. The patient's chest and abdomen prepped with Hibiclens and ChloraPrep and draped with Ioban and sterile sheets. PENG probe was placed by Dr. Gareth Macdonald. Examination carried out as discussed above. There was a large pericardial effusion that was seen. It was circumferential. The left atrial appendage had been obliterated from previous operation and after clip placement. Record Of Operation [facility] [place]. [address] NAME: CHAPO FELTON : 64 STATUS : ADM Vitor PAT#: [id number] AGE: 56 ADM/REG DATE : 12/02/16 MR#: [id number] REPORT SERV DATE: 12/04/16 DICTATED BY: EMANUEL DE OLIVEIRA DATE: 12/04/16 REPORT STATUS : Draft TRANSCRIBED BY: DARIN DATE: 12/04/16 Upper abdominal low chest incision was made for approximately 6 cm at the xiphoid and carried through the subcutaneous tissue. The linea alba was divided up to the xiphoid and curved towards the left costal margin. Retractor was placed on the left costal margin and we dissected above the diaphragm, upon the pericardium. Once within the pericardial space, indentation was used on echo. A small hole was made in the anterior pericardium and a large amount of bloody fluid was obtained. This was completely evacuated and about 800 mL was removed. Some of this fluid was sent for cultures. After removal of all the pericardial effusion, PENG confirmed removal of pericardial effusion. The pericardial space was then irrigated copiously with sterile water and saline. There was good hemostasis. Once hemostasis was assured, a Lloyd drain was placed through a separate stab incision and brought through and secured to the skin. This Lloyd drain was then placed in the posterior pericardial space. Once hemostasis was assured, the linea alba was reapproximated with StrataFix, subcutaneous tissue closed, and skin closed in a subcuticular fashion. At this time, we examined the EKG of the patient. The patient appeared to be in a normal sinus rhythm with a regular pulse. Therefore cardioversion was not performed. Dressings were applied. The patient tolerated the procedure well. There were no complications. DISPOSITION: The patient was extubated and taken to the recovery room in stable condition. LETY Emanuel De Oliveira M.D. / [id number] CC: Mina Johnson M.D.
--- NOTE | ~2016-12-02 | CN ---
Consultation Report [facility] [address] [facility] [place]. [address] NAME: CHAPO FELTON : 64 STATUS : ADM Vitor PAT#: [id number] AGE: 56 ADM/REG DATE : 12/02/16 MR#: [id number] REPORT SERV DATE: 12/03/16 DICTATED BY: EMANUEL DE OLIVEIRA DATE: 12/03/16 REPORT STATUS : Draft TRANSCRIBED BY: MODL DATE: 12/03/16 CONSULTATION NOTE DATE OF CONSULTATION: REASON FOR CONSULTATION: Large pericardial effusion, status post recent right thoracoscopic maze procedure, on oral anticoagulation. 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 De Oliveira. The patient had recurrent atrial fibrillation in hospital, and required DC cardioversion. He was then placed on Lovenox and Coumadin and full-strength adult aspirin daily. He went home, he developed shortness of breath and unusual fatigue which he said felt like his previous heart failure that he had. He came to the hospital, and underwent transthoracic echocardiogram that was read by Dr. Sullivan as a large pericardial effusion with respiratory variation, mildly diminished left ventricular function with ejection fraction of 45% to 50%. His chest x-ray did not show any significant pleural effusion. We were asked to see for possible pericardial window and the patient was seen and examined today. PRIOR MEDICAL HISTORY: Significant for hypertension, paroxysmal atrial fibrillation and prior heart failure. PRIOR SURGICAL HISTORY: Significant for the above and prior rhinoplasty. ALLERGIES: SIGNIFICANT FOR HYDRALAZINE, WHICH RESULTS IN SKIN RASH AND DIZZINESS. MEDICATIONS: Amiodarone 200 mg p.o. b.i.d., vitamin C 500 mg p.o. daily, B complex with C tablet daily, carvedilol 12.5 mg p.o. b.i.d., Lovenox 100 mg subcu twice daily, hydrocodone with APAP 5/325 one to two tablets p.o. q.4 hours as needed for pain, Mag-Ox 400 mg p.o. daily, warfarin 5.5 mg p.o. q.p.m., and amiodarone 400 mg p.o. b.i.d. FAMILY HISTORY: Negative for heart problems. SOCIAL HISTORY: He does not smoke, rarely drinks alcohol. He is employed as a chiropractor. REVIEW OF SYSTEMS: GENERAL: Positive for severe fatigue and exercise intolerance in the last two days. ENT: Positive for wearing glasses for reading and prior rhinoplasty. RESPIRATORY: Positive for shortness of breath with ambulation. CV: Positive for his prior AFib, negative for chest pain, negative for syncope or near Consultation Report [id number] [place]. [address] NAME: CHAPO FELTON : 64 STATUS : ADM Vitor PAT#: [id number] AGE: 56 ADM/REG DATE : 12/02/16 MR#: [id number] REPORT SERV DATE: 12/03/16 DICTATED BY: EMANUEL DE OLIVEIRA DATE: 12/03/16 REPORT STATUS : Draft TRANSCRIBED BY: MODL DATE: 12/03/16 syncope. Positive for dyspnea on exertion. RESPIRATORY: Also positive for sleep apnea. GI: Positive for hemorrhoids. : Positive for renal calculi. Otherwise, negative or as above. PHYSICAL EXAMINATION: GENERAL: This is a pleasant gentleman, who appears younger than his chronological age. His height is 5 feet 9 inches. Weight is 100.38 kg. VITAL SIGNS: Blood pressure is 116/77, temperature 96.7, heart rate approximately 88 beats per minute by my evaluation. He does become tachycardic when he is standing upright. His saturation is 99% on 2 L nasal cannula. HEENT: Normocephalic, atraumatic. Pupils equal, round, reactive to light and accommodation, sclerae clear, conjunctivae pink. Oral and buccal mucosa pink and moist. NECK: Neck veins are prominent with head of bed at 45 degrees. Neck is supple. No carotid bruits. CV: Regular rate and rhythm without murmur or rub. His heart sounds are heard on auscultation, but somewhat distant or diminished. He has a regular rate and rhythm and palpable central and peripheral pulses. There is no clubbing, cyanosis, or edema. ABDOMEN: Soft, obese, nontender with normoactive bowel sounds. No hepatosplenomegaly. /RECTAL: Declined. MUSCULOSKELETAL: No kyphoscoliosis. No asymmetry. SKIN: Warm and dry without lesions, masses, or rashes. NEURO: He is alert and oriented to day, date, place, and situation. Speech is clear and fluent. No focal deficits. DATA: His echocardiogram as mentioned above. EKG shows normal sinus rhythm with nonspecific ST-T wave abnormality and prolonged QT. His current labs are significant for elevated ALT of 313. His INR was 1.8. CBC: WBCs are 8.4, hemoglobin 9.8 g, hematocrit 28.9%, platelets 348,000. Electrolyte profile shows normal creatinine 1.06, and otherwise within normal limits. IMPRESSION: Large pericardial effusion, symptomatic. We discussed with the patient possible pericardial window, indications, benefits, and serious risks which include things like bleeding, infection, pneumonia, blood transfusions, damage to the kidneys, liver, lungs, and even . The patient indicates his understanding and is willing to proceed. We will check his PT/INR and blood count in a.m. and have tentatively scheduled him for tomorrow for pericardial window. He is agreeable to this plan. We appreciate the opportunity to participate in his care. DICTATED BY: Gerardo Murguia N.P. MSL/MODL Emanuel Consultation Report [address] [address] NAME: CHAPO FELTON : 64 STATUS : ADM Vitor PAT#: [id number] AGE: 56 ADM/REG DATE : 12/02/16 MR#: [id number] REPORT SERV DATE: 12/03/16 DICTATED BY: EMANUEL DE OLIVEIRA DATE: 12/03/16 REPORT STATUS : Draft TRANSCRIBED BY: MODL DATE: 12/03/16 Mina De Oliveira / [id number] CC: Mina Johnson M.D.
--- NOTE | ~2016-12-02 | DS ---
Discharge Summary [facility] [address] [facility] [place]. [address] NAME: CHAPO FELTON : 64 STATUS : DIS IN PAT#: [id number] AGE: 56 ADM/REG DATE : 12/02/16 MR#: [id number] REPORT SERV DATE: 12/22/16 DICTATED BY: CHRIS KING DATE: 12/21/16 REPORT STATUS : Draft TRANSCRIBED BY: MODRony DATE: 12/21/16 Data Collection from hospitalization DISCHARGE DIAGNOSES: 1. Pericardial effusion. 2. Paroxysmal atrial fibrillation. 3. Hypertension. 4. History of prior heart failure. CONSULTATION: Dr. Mukund De Oliveira. PROCEDURES PERFORMED: Subxiphoid pericardial window drainage of pericardial effusion; transesophageal echocardiography, 12/04/2016. MEDICATIONS: Cordarone 400 mg twice a day, Eliquis 5 mg twice a day, vitamin C 500 mg daily, Super B-Complex one tablet daily, Coreg 12.5 mg twice a day, ferrous sulfate 300 mg daily, Lasix 40 mg daily, [place] 5/325 one to two tablets every four hours as needed, Mag-Ox 400 mg daily, Klor-Con 20 mEq daily. He was instructed not to continue Lovenox or warfarin. CONDITION AT DISCHARGE: Stable. DISPOSITION: The patient was discharged home on a low sodium, low cholesterol diet with activities as instructed. He would follow up with Dr. Chris King, 12/21/2016. He would follow up with Gerardo Murguia, 01/07/2017. HOSPITAL COURSE: This is a 56-year-old man, who has a several year history of atrial fibrillation. He underwent an open chest maze procedure by Dr. De Oliveira in the past few weeks prior to this admission. He had postoperative atrial fibrillation with a mildly rapid rate. He had been admitted to [facility] and given IV and oral amiodarone and then underwent a cardioversion. He subsequently reverted back to atrial fibrillation and presented to the emergency room with weakness and palpitations. He had symptoms of presyncope, but no actual syncope. He was admitted to the hospital at this time for further evaluation and treatment. Upon admission, his INR level was 1.6. His 12-lead EKG showed atrial fibrillation with a heart rate of 124 beats per minute. Occasional, aberrantly conducted beats or premature ventricular beats were noted. Nonspecific T-wave abnormalities were also noted. Amiodarone was increased orally. He was on IV Cardizem for short-term rate control. Echocardiogram was recommended to exclude pericardial effusion. We would plan for short-term rate control with additional time for amiodarone to load up and consider cardioversion down the road. The following day, he had had episodes of decreased blood pressure and elevated heart rate at times during the night. He was in a normal sinus rhythm at 5 a.m. and went back into atrial fibrillation later that morning. INR level was 1.8. Coreg was adjusted. Oral amiodarone was being given. An echocardiogram was performed. This revealed a large pericardial effusion. Coumadin and Lovenox were stopped. The patient was seen by Dr. Mukund De Oliveira regarding large pericardial effusion, status post recent right thoracoscopic maze procedure, on oral anticoagulation. The transthoracic echocardiogram had revealed large pericardial effusion with respiratory variation. Mildly diminished left ventricular function with ejection fraction of 45% to 50%. Chest x-ray did not show any significant Discharge Summary [address] [address] NAME: CHAPO FELTON : 64 STATUS : DIS IN PAT#: [id number] AGE: 56 ADM/REG DATE : 12/02/16 MR#: [id number] REPORT SERV DATE: 12/22/16 DICTATED BY: CHRIS KING DATE: 12/21/16 REPORT STATUS : Draft TRANSCRIBED BY: DARIN DATE: 12/21/16 pleural effusion. INR level was 1.8. Creatinine was 1.06. The large pericardial effusion was felt to be symptomatic. It was felt that he would need to undergo pericardial window. He agreed to proceed. On 12/04/2016, he was taken to the operating room by Dr. Mukund De Oliveira, where he underwent the above-mentioned procedure. He tolerated this well and there were no complications. Postoperatively, he did have some pain in his left side. He was given IV Toradol and oral Brookdale. He was going to be placed back on IV amiodarone drip. He said he felt much better after the pericardial drainage. Telemetry revealed atrial fibrillation. IV and oral amiodarone were continued. On 12/05/2016, he was currently in a sinus rhythm in the 70s, he said he felt well. He had no edema. Oral amiodarone continued as well as beta-ketan. Over the next couple of days, he remained in a sinus rhythm. He had no new issues. Discharge planning was performed. His drain was removed and the patient returned to paroxysmal atrial fibrillation. Oral amiodarone and Coreg were continued. Discharge planning continued. On 12/07/2016, he felt better. He did have some bloating. He was retaining fluid. He had no shortness of breath. Telemetry revealed atrial fibrillation, controlled rate. Eliquis was continued. Lasix was started. Echocardiogram was performed. Chest x-ray showed improved bilateral effusions. His incisions looked okay. Discharge instructions were given. Due to his improved and stable condition, he was discharged home with the above-stated instructions. Information collected by: Zayra Umaña I submit the above information as my discharge summary. SHOBHA/DARIN Chris King M.D. / [id number] CC: Mina Johnson M.D. James Zellner, M.D.
[2016-12-02 15:52] LABS: BASOPHILS 0.1 %; BASOPHILS ABSOLUTE 0.01 10/3/uL (0.0-0.16); EOSINOPHILS 1.1 %; HEMATOCRIT 31.2 % (40.0-51.0); HEMOGLOBIN 10.4 g/dL (13.6-17.8); IMMATURE GRANULOCYTES 3.1 %; IMMATURE GRANULOCYTES ABSOLUTE 0.29 10/3/uL (0.0-0.11); LYMPHOCYTES 9.6 %; MEAN CORPUS HGB CONC 33.3 g/dL (32.0-36.0); MEAN CORPUSCULAR HEMOGLOB 30.4 pg (26.0-34.0); MEAN CORPUSCULAR VOLUME 91.2 fL (80-100); MONOCYTES 9.6 %; NEUTROPHILS 76.5 %; NEUTROPHILS ABSOLUTE 7.22 10/3/uL (2.02-8.40); RBC DISTRIBUTION WIDTH 12.8 % (12.0-16.0); RED CELL COUNT 3.42 10/6/uL (4.7-6.1); WHITE BLOOD CELLS 9.4 10/3/uL (4.5-10.5)
[2016-12-02 15:54] LABS: MANUAL DIFF NO %; PLATELET COUNT 370 10/3/uL (150-400)
[2016-12-02 16:01] LABS: INTERNATIONAL NORMAL RATI 1.6 UNITS (-)
[2016-12-02 16:03] LABS: PROTIME (NOT ORD) 18.9 SEC (12.0-14.5)
[2016-12-02 16:11] LABS: CALCIUM, SERUM 8.8 MG/DL (8.5-10.4); CHLORIDE, SERUM 100 MMOL/L (96-112); CO2 (CARBON DIOXIDE) 28 MMOL/L (24-34); CREATININE 1.01 MG/DL (0.70-1.30); GFR AFRICAN AMERICAN 97 ML/MIN (>=60); GFR NON AFRICAN AMERICAN 84 ML/MIN (>=60); SODIUM, SERUM 135 MMOL/L (135-148)
[2016-12-02 16:12] LABS: BUN (BLOOD UREA NITROGEN) 20 MG/DL (6-23); GLUCOSE, SERUM 121 MG/DL (60-99)
[2016-12-02 16:14] LABS: CHEST PAIN PROFILE TAT 0 Hrs 26 Mins; TROPONIN I 0.58 NG/ML (<0.05)
[~2016-12-02 16:39] MED LIST changes: +C1 PO; +CORDARONE PO; +LOVENOX1C SC; +NORCO1 TA1 PO
[2016-12-02] MEDS ORDERED: MAGOX4 PO (18:50)
[2016-12-02] MEDS ORDERED: SUPER B COMP PO (18:50)
[2016-12-02] MEDS ORDERED: VITC500 PO (18:51)
[2016-12-03 04:51] LABS: BASOPHILS 0.4 %; BASOPHILS ABSOLUTE 0.03 10/3/uL (0.0-0.16); EOSINOPHILS 1.2 %; HEMATOCRIT 28.9 % (40.0-51.0); HEMOGLOBIN 9.8 g/dL (13.6-17.8); IMMATURE GRANULOCYTES 3.6 %; LYMPHOCYTES 15.7 %; LYMPHOCYTES ABSOLUTE 1.31 10/3/uL (0.67-4.30); MEAN CORPUS HGB CONC 33.9 g/dL (32.0-36.0); MEAN CORPUSCULAR HEMOGLOB 31.3 pg (26.0-34.0); MEAN CORPUSCULAR VOLUME 92.3 fL (80-100); MEAN PLATELET VOLUME 8.7 fL (9.2-13.0); MONOCYTES ABSOLUTE 0.84 10/3/uL (0.21-1.20); NEUTROPHILS 69.1 %; NEUTROPHILS ABSOLUTE 5.79 10/3/uL (2.02-8.40); PLATELET COUNT 348 10/3/uL (150-400); RBC DISTRIBUTION WIDTH 12.6 % (12.0-16.0); RED CELL COUNT 3.13 10/6/uL (4.7-6.1); WHITE BLOOD CELLS 8.4 10/3/uL (4.5-10.5)
[2016-12-03 04:53] LABS: MANUAL DIFF NO %
[2016-12-03 04:58] LABS: INTERNATIONAL NORMAL RATI 1.8 UNITS (-)
[2016-12-03 05:09] LABS: BUN (BLOOD UREA NITROGEN) 21 MG/DL (6-23); CALCIUM, SERUM 8.7 MG/DL (8.5-10.4); CHLORIDE, SERUM 101 MMOL/L (96-112); CO2 (CARBON DIOXIDE) 28 MMOL/L (24-34); CREATININE 1.06 MG/DL (0.70-1.30); GFR AFRICAN AMERICAN 92 ML/MIN (>=60); GFR NON AFRICAN AMERICAN 79 ML/MIN (>=60); GLUCOSE, SERUM 105 MG/DL (60-99); POTASSIUM, SERUM 4.1 MMOL/L (3.5-5.3); SGPT(ALT) 313 U/L (5-65); SODIUM, SERUM 136 MMOL/L (135-148)
[2016-12-03 05:19] LABS: CHOL/HDL RATIO(NOT ORDER) 2.3 (0-5); CHOLESTEROL 90 MG/DL (< 200); HDL CHOLESTEROL 40 MG/DL (> 39); LDL CHOLESTEROL 39 MG/DL (< 130); NON-HDL CHOLESTEROL 50 MG/DL (< 160); TRIGLYCERIDE 57 MG/DL (< 150)
[2016-12-04 05:38] LABS: BASOPHILS 0.3 %; BASOPHILS ABSOLUTE 0.04 10/3/uL (0.0-0.16); EOSINOPHILS 0.5 %; EOSINOPHILS ABSOLUTE 0.06 10/3/uL (0.0-0.53); HEMATOCRIT 29.6 % (40.0-51.0); IMMATURE GRANULOCYTES 4.3 %; IMMATURE GRANULOCYTES ABSOLUTE 0.49 10/3/uL (0.0-0.11); LYMPHOCYTES 13.5 %; LYMPHOCYTES ABSOLUTE 1.55 10/3/uL (0.67-4.30); MEAN CORPUS HGB CONC 33.8 g/dL (32.0-36.0); MEAN CORPUSCULAR HEMOGLOB 31.3 pg (26.0-34.0); MEAN CORPUSCULAR VOLUME 92.5 fL (80-100); MEAN PLATELET VOLUME 9.2 fL (9.2-13.0); MONOCYTES 10.7 %; MONOCYTES ABSOLUTE 1.22 10/3/uL (0.21-1.20); NEUTROPHILS 70.7 %; NEUTROPHILS ABSOLUTE 8.09 10/3/uL (2.02-8.40); PLATELET COUNT 438 10/3/uL (150-400); RBC DISTRIBUTION WIDTH 12.9 % (12.0-16.0); WHITE BLOOD CELLS 11.5 10/3/uL (4.5-10.5)
[2016-12-04 05:43] LABS: MANUAL DIFF NO %
[2016-12-04 05:46] LABS: PROTIME (NOT ORD) 22.1 SEC (12.0-14.5)
[2016-12-04 05:56] LABS: CALCIUM, SERUM 8.8 MG/DL (8.5-10.4); CHLORIDE, SERUM 98 MMOL/L (96-112); CO2 (CARBON DIOXIDE) 26 MMOL/L (24-34); CREATININE 1.32 MG/DL (0.70-1.30); DIRECT BILIRUBIN 0.1 MG/DL (0.0-0.4); GFR AFRICAN AMERICAN 70 ML/MIN (>=60); GFR NON AFRICAN AMERICAN 61 ML/MIN (>=60); GLUCOSE, SERUM 120 MG/DL (60-99); INDIRECT BILIRUBIN(NOT ORDER) 0.3 MG/DL (0.1-0.9); POTASSIUM, SERUM 4.4 MMOL/L (3.5-5.3); SGOT(AST) 149 U/L (5-40); SGPT(ALT) 315 U/L (5-65); SODIUM, SERUM 132 MMOL/L (135-148); TOTAL BILIRUBIN 0.4 MG/DL (0-1.2); TOTAL PROTEIN 6.3 G/DL (6.0-8.5)
[2016-12-04 05:57] LABS: ALBUMIN 2.8 G/DL (3.5-5.0); ALKALINE PHOSPHATASE 231 U/L (45-117); BUN (BLOOD UREA NITROGEN) 30 MG/DL (6-23)
[2016-12-05 05:12] LABS: HEMATOCRIT 27.8 % (40.0-51.0); HEMOGLOBIN 9.4 g/dL (13.6-17.8); MEAN CORPUS HGB CONC 33.8 g/dL (32.0-36.0); MEAN CORPUSCULAR HEMOGLOB 30.9 pg (26.0-34.0); MEAN CORPUSCULAR VOLUME 91.4 fL (80-100); MEAN PLATELET VOLUME 9.1 fL (9.2-13.0); PLATELET COUNT 412 10/3/uL (150-400); RBC DISTRIBUTION WIDTH 12.9 % (12.0-16.0); RED CELL COUNT 3.04 10/6/uL (4.7-6.1); WHITE BLOOD CELLS 15.1 10/3/uL (4.5-10.5)
[2016-12-05 05:14] LABS: MANUAL DIFF YES %
[2016-12-05 05:29] LABS: BUN (BLOOD UREA NITROGEN) 32 MG/DL (6-23); CALCIUM, SERUM 8.4 MG/DL (8.5-10.4); CHLORIDE, SERUM 97 MMOL/L (96-112); CO2 (CARBON DIOXIDE) 25 MMOL/L (24-34); CREATININE 1.35 MG/DL (0.70-1.30); GFR AFRICAN AMERICAN 68 ML/MIN (>=60); GFR NON AFRICAN AMERICAN 59 ML/MIN (>=60); GLUCOSE, SERUM 102 MG/DL (60-99); POTASSIUM, SERUM 3.8 MMOL/L (3.5-5.3); SODIUM, SERUM 132 MMOL/L (135-148)
[2016-12-05 06:39] LABS: BAND NEUTROPHILS 2 %; EOSINOPHILS 1 %; EOSINOPHILS ABSOLUTE (CALC) 0.15 10/3/uL (0.0-0.53); LYMPHOCYTES 10 %; LYMPHOCYTES ABSOLUTE (CALC) 1.51 10/3/uL (0.67-4.30); METAMYELOCYTES 3 %; MONOCYTES 8 %; MONOCYTES ABSOLUTE (CALC) 1.21 10/3/uL (0.21-1.20); MYELOCYTES 1 %; NEUTROPHILS ABSOLUTE (CALC) 11.63 10/3/uL (2.02-8.40); PLATELET ESTIMATE SLT INC (ADEQUATE); POLYCHROMASIA 1+ (2-5/OIF) (0-1/OIF); SEGMENTED NEUTROPHIL (0) 75 %; TEARDROP SHAPED RBCS OCC (0-2/OIF); TOTAL NUCLEATED CELLS 100
[2016-12-05 06:40] LABS: TOXIC GRANULATION SLT
[2016-12-07 05:06] LABS: CALCIUM, SERUM 8.7 MG/DL (8.5-10.4); CHLORIDE, SERUM 104 MMOL/L (96-112); CO2 (CARBON DIOXIDE) 26 MMOL/L (24-34); CREATININE 1.03 MG/DL (0.70-1.30); GFR AFRICAN AMERICAN 95 ML/MIN (>=60); GFR NON AFRICAN AMERICAN 82 ML/MIN (>=60); GLUCOSE, SERUM 89 MG/DL (60-99); HEMATOCRIT 28.6 % (40.0-51.0); HEMOGLOBIN 9.5 g/dL (13.6-17.8); MEAN CORPUS HGB CONC 33.2 g/dL (32.0-36.0); MEAN CORPUSCULAR HEMOGLOB 31.6 pg (26.0-34.0); MEAN PLATELET VOLUME 8.9 fL (9.2-13.0); PLATELET COUNT 491 10/3/uL (150-400); RBC DISTRIBUTION WIDTH 13.1 % (12.0-16.0); RED CELL COUNT 3.01 10/6/uL (4.7-6.1); SODIUM, SERUM 137 MMOL/L (135-148); WHITE BLOOD CELLS 14.8 10/3/uL (4.5-10.5)
[2016-12-07 05:07] LABS: BUN (BLOOD UREA NITROGEN) 17 MG/DL (6-23); MANUAL DIFF YES %; POTASSIUM, SERUM 4.7 MMOL/L (3.5-5.3)
[2016-12-07 07:09] LABS: BAND NEUTROPHILS 6 %; EOSINOPHILS 3 %; EOSINOPHILS ABSOLUTE (CALC) 0.44 10/3/uL (0.0-0.53); IMMATURE GRANS ABSOLUTE (CALC) 0.89 10/3/uL (0.0-0.11); LYMPHOCYTES 14 %; LYMPHOCYTES ABSOLUTE (CALC) 2.07 10/3/uL (0.67-4.30); METAMYELOCYTES 5 %; MONOCYTES 5 %; MONOCYTES ABSOLUTE (CALC) 0.74 10/3/uL (0.21-1.20); MYELOCYTES 1 %; NEUTROPHILS ABSOLUTE (CALC) 10.66 10/3/uL (2.02-8.40); PLATELET ESTIMATE SLT INC (ADEQUATE); SEGMENTED NEUTROPHIL (0) 66 %; TOTAL NUCLEATED CELLS 100
[2016-12-07 07:10] LABS: HYPOCHROMIA 1+ (3-10/OIF) (0-2/OIF); POLYCHROMASIA 1+ (2-5/OIF) (0-1/OIF)
[2016-12-07] MEDS ORDERED: ELIQUIS 5 MG TAB5 MG PO (10:02)
[2016-12-07] MEDS ORDERED: FESO4 PO (10:08)
[2016-12-07] MEDS ORDERED: L40 PO (10:08)
[2016-12-07] MEDS ORDERED: KLOR-CON M2020 MEQ PO (10:09)
== END 2016-12-07 11:57 | disposition home or self-care (01) | DRG 271 ==
LOC: ER 16:39 → 6NO 18:51 → 5NO 12-04 10:09
PROVIDERS: Emergency Medicine; Internal Medicine Cardiovascular Disease; Nurse Practitioner Family; Thoracic Surgery (Cardiothoracic Vascular Surgery)
PROC: 0W9D00Z Drainage of Pericardial Cavity with Drainage Device, Open Approach (ICD-10-PCS; principal; 2016-12-04 07:45)
PROC: B246ZZ4 Ultrasonography of Right and Left Heart, Transesophageal (ICD-10-PCS; 2016-12-04 07:45)
DX: I31.3 Pericardial effusion (noninflammatory) (principal); I48.1 Persistent atrial fibrillation; I50.22 Chronic systolic (congestive) heart failure; I48.2 Chronic atrial fibrillation; E66.9 Obesity, unspecified; Z68.31 Body mass index [BMI] 31.0-31.9, adult; Z98.890 Other specified postprocedural states
CPT/HCPCS: 36415; 71010; 71020; 80048; 80061; 80076; 82962; 83735; 83880; 84460; 84484; 85025; 85610; 85730; 86850; 86900; 86901; 87015; 87070; 87075; 87102; 87116; 87205; 93005; 93307; 93312; 93320; 93325; 94640; 96374; 99291; A9270-GY; C8924; J0282; J0330; J0610; J0690; J1885; J2250; J2405; J2710; J2795; J3010; Q9957